=== PATIENT | male | born 1975 | race Caucasian/White ===

== ENCOUNTER 2022-07-26 16:47 | Emergency (ER) | payer SELFPAY ==
--- NOTE | 2022-07-26 17:06 | NUR ---
PT REFUSED TO COME TO TRIAGE AREA. PT REFUSED TO BE EXAMINED BY DR YBRNE. PT LEFT WAITING ROOM BEFORE TRIAGE.
== END 2022-07-26 17:07 | disposition left against medical advice (07) ==
LOC: ER 16:50
DX: Z53.21 Procedure and treatment not carried out due to patient leaving prior to being seen by health care provider (principal)